=== PATIENT | male | born 2000 | race Caucasian/White ===

== ENCOUNTER 2022-05-31 11:44 | Emergency (ER) | payer SELFPAY ==
[2022-05-31] MEDS ORDERED: Lidocaine 1% PF 5 ML VIAL ONE (12:14)
[2022-05-31] MEDS ORDERED: Boostrix 0.5 ML (Tdap) VIAL (>/=7 yrs of age) ONE (12:15)
== END 2022-05-31 12:45 | disposition home or self-care (01) ==
LOC: ERS 11:44
DX: S51.812A Laceration without foreign body of left forearm, initial encounter (principal); W26.0XXA Contact with knife, initial encounter; Z23 Encounter for immunization
CPT/HCPCS: 12001; 90471; 90715